=== PATIENT | female | born 1960 | race Caucasian/White ===

== ENCOUNTER → 2017-04-22 | Outpatient (CLI) | payer OTHER | LOC: RAD 00:34 | DX: Z12.31 Encounter for screening mammogram for malignant neoplasm of breast (principal) ==

== ENCOUNTER → 2018-04-25 | Outpatient (CLI) | payer OTHER | LOC: RAD 01:18 | DX: Z12.31 Encounter for screening mammogram for malignant neoplasm of breast (principal) ==

== ENCOUNTER → 2018-05-02 | Outpatient (CLI) | payer OTHER | LOC: NUC 10:19 | DX: M81.0 Age-related osteoporosis without current pathological fracture (principal); M85.89 Other specified disorders of bone density and structure, multiple sites ==

== ENCOUNTER → 2019-04-30 | Outpatient (CLI) | payer OTHER | LOC: RAD 13:03 | DX: Z12.31 Encounter for screening mammogram for malignant neoplasm of breast (principal) ==

== ENCOUNTER → 2019-05-04 | Outpatient (CLI) | payer OTHER | LOC: ULTRA 13:20 | DX: N60.02 Solitary cyst of left breast (principal) ==

== ENCOUNTER → 2019-05-21 | Outpatient (CLI) | payer OTHER | LOC: CANPRERCR → RAD 09:05 → PT 05-28 10:00 → SPEECH 05-28 11:03 → EDSTATUS 05-28 13:55 → PT 05-28 15:51 → EDSTATUS 05-28 15:57 | DX: R92.2 Inconclusive mammogram (principal) ==

== ENCOUNTER → 2019-05-21 | Outpatient (CLI) | payer OTHER ==
--- NOTE | 2019-05-22 15:07 | PATH ---
[facility] [address] [place] [address] PATHOLOGY RPT PROCEDURE Name: CARLOS PEARSON Room #: REG [facility] M.R.#: [id number] Admission: 05/21/19 Date of : 60 Discharge: Report #: [id number] Path Case #: [id number] [facility] Accession Number: [id number] . 01 Material submitted: . breast - LEFT UPPER OUTER BREAST MASS. Modifiers: left, upper, outer . 01 Clinical history: . Left breast mass, left breast nodule . 02 Diagnosis: Breast mass, left, upper outer, core needle biopsy: - Fibroadenoma with focal apocrine metaplasia. - Microcalcifications present focally. - No evidence of atypia or malignancy. . (Please see comment) (RADHA:jun; 05/22/2019) QTP 05/22/2019 1458 Local . 02 Comment: This case has also been reviewed by Dr. Jensen Collins who agrees with the diagnosis. (SKM:pit; 05/22/2019) . 02 Electronically signed: . Francisco Gaming MD, Pathologist NPI- [id number] . 01 Gross description: . Received in formalin labeled "Carlos Pearson, left," and additionally labeled on the requisition as "upper outer breast," are multiple needle cores of yellow-sanchez fibrofatty tissue measuring 3.1 x 3.9 x 0.6 cm in aggregate dimensions. The tissue is submitted in its entirety in cassettes A1-A4. The cold ischemic time is 5 minutes. The total formalin fixation time is greater than 6 hours and less than 72 hours. (TSD; 05/21/2019) TOB/TOB 05/21/20196 Local . 02 Pathologist provided ICD-10: D24.2, N60.82 . 02 CPT . 968261 Specimen Comment: A courtesy copy of this report has been sent to [phone] Specimen Comment: Report sent to Performed at: [address] [place] [address] PATHOLOGY RPT PROCEDURE Name: CARLOS PEARSON Room #: REG Rae Gutierrez#: [id number] Admission: 05/21/19 Date of : 60 Discharge: Report #: [id number] Path Case #: [id number] [facility] [address], [place], [place] [id number] MD Rajat Pop MD Phone: [phone] Performed at: [address] [id number] MD Luz Hernandez MD Phone: [phone]
== END | disposition home or self-care (01) ==
LOC: RADSTEREO 08:51 → BC 10:06 → RADSTEREO 12:25
DX: D24.2 Benign neoplasm of left breast (principal); N60.82 Other benign mammary dysplasias of left breast; R92.1 Mammographic calcification found on diagnostic imaging of breast

== ENCOUNTER → 2019-11-05 | Outpatient (CLI) | payer OTHER | LOC: RAD 09:25 → BC 09:25 → RAD 13:33 | PROVIDERS: ATTEND Nurse Practitioner Family | DX: Z12.39 Encounter for other screening for malignant neoplasm of breast (principal) ==

== ENCOUNTER → 2020-05-01 | Outpatient (CLI) | payer OTHER | LOC: BC 10:47 | PROVIDERS: ATTEND Student in an Organized Health Care Education/Training Program | DX: Z12.31 Encounter for screening mammogram for malignant neoplasm of breast (principal); N64.89 Other specified disorders of breast ==

== ENCOUNTER → 2020-05-14 | Outpatient (CLI) | payer OTHER | LOC: NUC 12:04 | PROVIDERS: ATTEND Nurse Practitioner Family | DX: M85.88 Other specified disorders of bone density and structure, other site (principal); M81.0 Age-related osteoporosis without current pathological fracture ==

== ENCOUNTER → 2021-05-04 | Outpatient (CLI) | payer OTHER | LOC: BC 12:47 → ULTRA 12:47 → BC 14:03 | PROVIDERS: ATTEND Family Medicine | DX: Z12.31 Encounter for screening mammogram for malignant neoplasm of breast (principal); N64.89 Other specified disorders of breast ==